=== PATIENT | male | born 1975 | race Caucasian/White ===

== ENCOUNTER 2016-11-29 10:28 | Emergency (ER) | payer BC, OTHER ==
[~2016-11-29] VITALS: Ht 185.4 cm; Wt 104.0 kg
[~2016-11-29 10:28] MED LIST: MECL25 PO; PROM25SU8 PO; Z.0.NO CURRENT MEDS
[2016-11-29 10:30] VITALS: BP 141/77; PULSE 86; RESP 20; TEMP 98.7; O2SAT 96
[2016-11-29] MEDS ORDERED: SODIUM CHLOR 0.9% 1000 ML INJ 1,000 ML IV SCH (11:04)
[2016-11-29] MEDS ORDERED: MORPHINE SULFATE 4 MG/ML INJ IV PUSH ONE (11:15)
[2016-11-29] MEDS ORDERED: SODIUM CHLORIDE 0.9% FLUSH 10 ML FLUSH IV FLUSH PRN (11:15)
[2016-11-29] MEDS ORDERED: ONDANSETRON HCL 4 MG/2 ML VIAL IVP ONE (11:15)
--- NOTE | 2016-11-29 11:18 | PD ---
HPI Chief Complaint: Flank/Kidney Pain Time Seen by Provider: 11:04 Travel History International Travel<30 days: No Contact w/Intl Traveler<30days: No Traveled to known affect area: No History of Present Illness HPI Patient is a 41-year-old male who presents to emergency room with complaints of right-sided flank pain. Patient reports that he has been having intermittent right-sided flank pain for the past week. Patient reports that he exercises heavily, reports that he thought that he initially pulled a muscle in his back. Patient reports that pain has been constant, reports that has been unrelenting at this time, patient reports that he does not have history of kidney stones in the past. Denies hematuria, denies urinary urgency/frequency. Reports that this pain is deep to his right flank. Patient also admits to taking a lot of muscle building protein shakes, reports that he has been taking extra creatine by accident as he did not realize that he was in his protein shakes. Patient with no fevers or chills, no nausea or vomiting, patient with no other complaints at this time. [facility] Past Medical History Medical History: Denies Significant Hx Diminished Hearing: No Tetanus Vaccination: Unknown Influenza Vaccination: No Past Surgical History Abdominal Surgery: Yes (HERNIA) Social History Alcohol Use: Yes (OCC) Tobacco Use: No Substance Use: No Allergies-Medications (Allergen,Severity, Reaction): Coded Allergies: No Known Allergies (Unverified , 11/29/16) Reported Meds & Prescriptions Reported Meds & Active Scripts Active No Active Prescriptions or Reported Medications Review of Systems General / Constitutional: No: Fever Eyes: No: Visual changes HENT: No: Headaches Cardiovascular: No: Chest Pain or Discomfort Respiratory: No: Shortness of Breath Gastrointestinal: No: Abdominal Pain Genitourinary: Positive: Flank Pain, No: Urgency, Frequency, Dysuria, Hematuria Musculoskeletal: No: Pain Skin: No Rash Neurologic: No: Weakness Psychiatric: No: Depression Endocrine: No: Polydipsia Hematologic/Lymphatic: No: Easy Bruising Physical Exam Narrative GENERAL: Mild distress SKIN: Focused skin assessment warm/dry. HEAD: Atraumatic. Normocephalic. EYES: Pupils equal and round. No scleral icterus. No injection or drainage. ENT: No nasal bleeding or discharge. Mucous membranes pink and moist. NECK: Trachea midline. No JVD. CARDIOVASCULAR: Regular rate and rhythm. No murmur appreciated. RESPIRATORY: No accessory muscle use. Clear to auscultation. Breath sounds equal bilaterally. GASTROINTESTINAL: Abdomen soft, non-tender, nondistended. Hepatic and splenic margins not palpable. MUSCULOSKELETAL: No obvious deformities. No clubbing. No cyanosis. No edema. Patient with left sided flank pain on exam NEUROLOGICAL: Awake and alert. No obvious cranial nerve deficits. Motor grossly within normal limits. Normal speech. PSYCHIATRIC: Appropriate mood and affect; insight and judgment normal. Data Data Last Documented VS Vital Signs Date Time Temp Pulse Resp B/P (MAP) Pulse Ox O2 Delivery O2 Flow Rate FiO2 11/29/16 10:56 16 11/29/16 10:30 98.7 86 141/77 (98) 96 Room Air Orders Orders Complete Blood Count With Diff (11/29/16 11:04) Comprehensive Metabolic Panel (11/29/16 11:04) Prothrombin Time / Inr (Pt) (11/29/16 11:04) Act Partial Throm Time (Ptt) (11/29/16 11:04) Urinalysis - C+S If Indicated (11/29/16 11:04) Ct Abd/Pel W/O Iv Contrast (11/29/16 11:04) Iv Access Insert/Monitor (11/29/16 11:04) Ecg Monitoring (11/29/16 11:04) NPO (11/29/16 11:04) Morphine Inj (Morphine Inj) (11/29/16 11:15) Ondansetron Inj (Zofran Inj) (11/29/16 11:15) Sodium Chlor 0.9% 1000 Ml Inj (Ns 1000 M (11/29/16 11:04) Sodium Chloride 0.9% Flush (Ns Flush) (11/29/16 11:15) Labs Laboratory Tests Test 11/29/16 11:00 White Blood Count 6.2 TH/MM3 Red Blood Count 4.91 MIL/MM3 Hemoglobin 13.7 GM/DL Hematocrit 41.1 % Mean Corpuscular Volume 83.7 FL Mean Corpuscular Hemoglobin 27.8 PG Mean Corpuscular Hemoglobin Concent 33.3 % Red Cell Distribution Width 14.3 % Platelet Count 198 TH/MM3 Mean Platelet Volume 9.8 FL Neutrophils (%) (Auto) 63.5 % Lymphocytes (%) (Auto) 25.8 % Monocytes (%) (Auto) 7.1 % Eosinophils (%) (Auto) 2.8 % Basophils (%) (Auto) 0.8 % Neutrophils # (Auto) 4.0 TH/MM3 Lymphocytes # (Auto) 1.6 TH/MM3 Monocytes # (Auto) 0.4 TH/MM3 Eosinophils # (Auto) 0.2 TH/MM3 Basophils # (Auto) 0.0 TH/MM3 CBC Comment DIFF FINAL Differential Comment Prothrombin Time 11.0 SEC Prothromb Time International Ratio 1.0 RATIO Activated Partial Thromboplast Time 25.9 SEC Urine Color YELLOW Urine Turbidity CLEAR Urine pH 5.0 Urine Specific Loring 1.025 Urine Protein NEG mg/dL Urine Glucose (UA) NEG mg/dL Urine Ketones NEG mg/dL Urine Occult Blood TRACE Urine Nitrite NEG Urine Bilirubin NEG Urine Urobilinogen LESS THAN 2.0 MG/DL Urine Leukocyte Esterase NEG Urine RBC LESS THAN 1 /hpf Urine WBC 1 /hpf Urine Squamous Epithelial Cells <1 /hpf Urine Bacteria RARE /hpf Urine Hyaline Casts 1 /lpf Urine Mucus FEW /lpf Microscopic Urinalysis Comment CULT NOT INDICATED Blood Urea Nitrogen 16 MG/DL Creatinine 1.11 MG/DL Random Glucose 104 MG/DL Total Protein 7.5 GM/DL Albumin 4.2 GM/DL Calcium Level 8.8 MG/DL Alkaline Phosphatase 51 U/L Aspartate Amino Transf (AST/SGOT) 12 U/L Alanine Aminotransferase (ALT/SGPT) 23 U/L Total Bilirubin 0.4 MG/DL Sodium Level 140 MEQ/L Potassium Level 3.7 MEQ/L Chloride Level 111 MEQ/L Carbon Dioxide Level 24.5 MEQ/L Anion Gap 5 MEQ/L Estimat Glomerular Filtration Rate 73 ML/MIN [facility] Medical Decision Making Medical Screen Exam Complete: Yes Emergency Medical Condition: Yes Medical Record Reviewed: Yes Interpretation(s) Vital Signs Date Time Temp Pulse Resp B/P (MAP) Pulse Ox O2 Delivery O2 Flow Rate FiO2 11/29/16 10:56 16 11/29/16 10:30 98.7 86 20 141/77 (98) 96 Room Air Differential Diagnosis Differential includes pyelonephritis, musculoskeletal flank pain, uti, renal failure Narrative Course Patient is a 41-year-old male who presents to emergency room with complaints of left sided flank pain. Onset was for the past week. An IV line was established, lab work including UA ordered. CT of his abdomen and pelvis. IVF ordered. Patient refuses any pain medications at this time. Vital Signs Date Time Temp Pulse Resp B/P (MAP) Pulse Ox O2 Delivery O2 Flow Rate FiO2 11/29/16 10:56 16 11/29/16 10:30 98.7 86 20 141/77 (98) 96 Room Air Laboratory Tests Test 11/29/16 11:00 White Blood Count 6.2 TH/MM3 (4.0-11.0) Red Blood Count 4.91 MIL/MM3 (4.50-5.90) Hemoglobin 13.7 GM/DL (13.0-17.0) Hematocrit 41.1 % (39.0-51.0) Mean Corpuscular Volume 83.7 FL (80.0-100.0) Mean Corpuscular Hemoglobin 27.8 PG (27.0-34.0) Mean Corpuscular Hemoglobin Concent 33.3 % (32.0-36.0) Red Cell Distribution Width 14.3 % (11.6-17.2) Platelet Count 198 TH/MM3 (150-450) Mean Platelet Volume 9.8 FL (7.0-11.0) Neutrophils (%) (Auto) 63.5 % (16.0-70.0) Lymphocytes (%) (Auto) 25.8 % (9.0-44.0) Monocytes (%) (Auto) 7.1 % (0.0-8.0) Eosinophils (%) (Auto) 2.8 % (0.0-4.0) Basophils (%) (Auto) 0.8 % (0.0-2.0) Neutrophils # (Auto) 4.0 TH/MM3 (1.8-7.7) Lymphocytes # (Auto) 1.6 TH/MM3 (1.0-4.8) Monocytes # (Auto) 0.4 TH/MM3 (0-0.9) Eosinophils # (Auto) 0.2 TH/MM3 (0-0.4) Basophils # (Auto) 0.0 TH/MM3 (0-0.2) CBC Comment DIFF FINAL Differential Comment Prothrombin Time 11.0 SEC (9.8-11.6) Prothromb Time International Ratio 1.0 RATIO Activated Partial Thromboplast Time 25.9 SEC (24.3-30.1) Urine Color YELLOW (YELLW/STRAW) Urine Turbidity CLEAR (CLEAR) Urine pH 5.0 (5.0-8.5) Urine Specific Loring 1.025 (1.002-1.035) Urine Protein NEG mg/dL (NEG-TRACE) Urine Glucose (UA) NEG mg/dL (NEG) Urine Ketones NEG mg/dL (NEG) Urine Occult Blood TRACE (NEG) Urine Nitrite NEG (NEG) Urine Bilirubin NEG (NEG) Urine Urobilinogen LESS THAN 2.0 MG/DL (LESS Urine Leukocyte Esterase NEG (NEG) Urine RBC LESS THAN 1 /hpf (0-3) Urine WBC 1 /hpf (0-5) Urine Squamous Epithelial Cells <1 /hpf (0-5) Urine Bacteria RARE /hpf (NONE) Urine Hyaline Casts 1 /lpf (RARE) Urine Mucus FEW /lpf (OCC) Microscopic Urinalysis Comment CULT NOT INDICATED Blood Urea Nitrogen 16 MG/DL (7-18) Creatinine 1.11 MG/DL (0.60-1.30) Random Glucose 104 MG/DL (74-106) Total Protein 7.5 GM/DL (6.4-8.2) Albumin 4.2 GM/DL (3.4-5.0) Calcium Level 8.8 MG/DL (8.5-10.1) Alkaline Phosphatase 51 U/L (45-117) Aspartate Amino Transf (AST/SGOT) 12 U/L (15-37) Alanine Aminotransferase (ALT/SGPT) 23 U/L (12-78) Total Bilirubin 0.4 MG/DL (0.2-1.0) Sodium Level 140 MEQ/L (136-145) Potassium Level 3.7 MEQ/L (3.5-5.1) Chloride Level 111 MEQ/L (98-107) Carbon Dioxide Level 24.5 MEQ/L (21.0-32.0) Anion Gap 5 MEQ/L (5-15) Estimat Glomerular Filtration Rate 73 ML/MIN (>89) Last Impressions Abdomen/Pelvis CT 11/29/16 1104 Signed Impressions: Service Date/Time: Tuesday, November 29, 2016 11:44 - CONCLUSION: 1. No acute abnormality seen. 2. 2 left renal masses. These are nonspecific on this noncontrast CT examination. They could be further evaluated with a contrast-enhanced study at some point. This could be performed as an outpatient. Bo Alexandra MD I reviewed all labs and all studies as well as all incidental findings with patient in detail. A copy of his CT report was given to him at discharge. Patient understands concerning findings of renal masses in left kidney. Patient understand's need to follow up with his pcp and sales associate as soon as possible as he will need further workup on these findings. He did initially presented to the emergency room with complaints of right-sided flank pain, this is most likely musculoskeletal in nature. Signs and symptoms of when to return to the emergency room reviewed patient in detail. Diagnosis Primary Impression: Left kidney mass Additional Impression: Right flank pain Referrals: Elise Kulkarni MD Patient Instructions: General Instructions Additional Instructions: Please provide patient with a copy of his labs and studies at discharge Please follow-up with your primary care doctor as soon as possible Please follow-up with sales associate as soon as possible as you will need further workup of the kidney masses seen on today study Please bring the copy of your labs and studies with you to your appointments Return to ER as needed Scripts No Active Prescriptions or Reported Meds Disposition: 01 DISCHARGE HOME Condition: Stable Gay Hewitt DO Nov 29, 2016 11:18
[2016-11-29 11:20] LABS: BASOPHIL % 0.8 % (0.0-2.0); EOSINOPHIL # 0.2 TH/MM3 (0-0.4); EOSINOPHIL % 2.8 % (0.0-4.0); HEMATOCRIT 41.1 % (39.0-51.0); HEMO FLAGS DIFF FINAL; LYMPH % 25.8 % (9.0-44.0); LYMPHOCYTE # 1.6 TH/MM3 (1.0-4.8); MEAN CELL VOLUME 83.7 FL (80.0-100.0); MEAN CORPUSCULAR HEMOGLOBIN 27.8 PG (27.0-34.0); MEAN CORPUSCULAR HGB CONC 33.3 % (32.0-36.0); MONO % 7.1 % (0.0-8.0); NEUT % 63.5 % (16.0-70.0); PLATELET COUNT 198 TH/MM3 (150-450); RED BLOOD COUNT 4.91 MIL/MM3 (4.50-5.90); RED CELL DISTRIBUTION WIDTH 14.3 % (11.6-17.2); WHITE BLOOD COUNT 6.2 TH/MM3 (4.0-11.0)
[2016-11-29 11:24] LABS: BACTERIA, URINE RARE /hpf; BLOOD, URINE TRACE (NEG); COMMENT (UR) CULT NOT INDICATED; CULTURE IF INDICATED CULT NOT INDICATED; GLUCOSE,URINE NEG (NEG); HYALINE CAST, URINE 1 /lpf (RARE); KETONE, URINE NEG (NEG); MUCUS URINE FEW /lpf (OCC); NITRITE,URINE NEG (NEG); SQUAMOUS EPITHELIAL CELL URINE <1 /hpf (0-5); URINE COLOR YELLOW (YELLW/STRAW)
[2016-11-29 11:26] LABS: APTT (PATIENT) 25.9 SEC (24.3-30.1)
[2016-11-29 11:42] LABS: ALT (GPT) 23 U/L (12-78); ANION GAP 5 MEQ/L (5-15); AST (GOT) 12 U/L (15-37); BICARBONATE 24.5 MEQ/L (21.0-32.0); BLOOD UREA NITROGEN 16 MG/DL (7-18); CHLORIDE 111 MEQ/L (98-107); GLOMERULAR FILTRATION RATE 73 ML/MIN (>89); POTASSIUM 3.7 MEQ/L (3.5-5.1); SODIUM (NA) 140 MEQ/L (136-145)
[2016-11-29 11:44] LABS: ALKALINE PHOSPHATASE 51 U/L (45-117); TOTAL BILIRUBIN ADULT 0.4 MG/DL (0.2-1.0)
--- NOTE | 2016-11-29 12:07 | RADRPT ---
EXAM DATE/TIME: 11/29/2016 11:44 [place] COMPARISON: No previous studies available for comparison. INDICATIONS : Flank pain. ORAL CONTRAST: No oral contrast ingested. RADIATION DOSE: 8.51 CTDIvol (mGy) MEDICAL HISTORY : None SURGICAL HISTORY : Hernia ENCOUNTER: Initial ACUITY: 2 weeks PAIN SCALE: 8/10 LOCATION: Right flank TECHNIQUE: Volumetric scanning of the abdomen and pelvis was performed. Using automated exposure control and ad justment of the mA and/or kV according to patient size, radiation dose was kept as low as reasonably achievable to obtain optimal diagnostic quality images. DICOM format image data is available electro nically for review and comparison. FINDINGS: LOWER LUNGS: The visualized lower lungs are clear. LIVER: Homogeneous density without lesion. There is no dilation of the biliary tree. No calcified gallston es. SPLEEN: Normal size without lesion. PANCREAS: Within normal limits. KIDNEYS: There is a 3 cm mass in the posterior mid left kidney and a 6.1 cm mass at the inferior left kidney. No renal stones or hydronephrosis is seen on either side. ADRENAL GLANDS: Within normal limits. VASCULAR: There is no aortic aneurysm. BOWEL/MESENTERY: The stomach, small bowel, and colon demonstrate no acute abnormality. There is no free intraperitone al air or fluid. ABDOMINAL WALL: Within normal limits. RETROPERITONEUM: There is no lymphadenopathy. BLADDER: No wall thickening or mass. REPRODUCTIVE: Within normal limits. INGUINAL: There is no lymphadenopathy or hernia. MUSCULOSKELETAL: Within normal limits for patient age. CONCLUSION: 1. No acute abnormality seen. 2. 2 left renal masses. These are nonspecific on this noncontrast CT examination. They could be furth er evaluated with a contrast-enhanced study at some point. This could be performed as an outpatient. Bo Alexandra MD on November 29, 2016 at 12:02 Board Certified Radiologist. This report was verified electronically.
[2016-12-09] MEDS ORDERED: ETOD500T2 PO (14:27)
== END 2016-11-29 13:18 | disposition home or self-care (01) ==
LOC: NEPC 10:28
DX: N28.89 Other specified disorders of kidney and ureter (principal); R10.31 Right lower quadrant pain
CPT/HCPCS: 74176; 80053; 81001; 85025; 85610; 85730; 96360; 99284; J7030

== ENCOUNTER 2016-12-22 11:26 | Inpatient (IN) | payer BC ==
[~2016-12-22] VITALS: Ht 185.4 cm; Wt 101.9 kg
[~2016-12-22 11:26] MED LIST changes: +ETOD500T2 PO; -MECL25 PO; -PROM25SU8 PO; -Z.0.NO CURRENT MEDS
[2016-12-22] MEDS ORDERED: PROPOFOL 200 MG/20 ML AMP IV ONE (12:00)
[2016-12-22] MEDS ORDERED: ceFAZolin INJ 1,000 MG VIAL IV ONE (12:00)
[2016-12-22] MEDS ORDERED: ePHEDrine/NS 25 MG/5 ML SYR IV ONE (12:00)
[2016-12-22] MEDS ORDERED: LIDOCAINE HCL 1% PF 5 ML SYRINGE OTHER ONE (12:00)
[2016-12-22] MEDS ORDERED: PHENYLEPHRINE HCL 10 MG/ML VIAL IV ONE (12:00)
[2016-12-22] MEDS ORDERED: ROCURONIUM INJ 50 MG/5 ML SYRINGE IV PUSH ONE (12:00)
[2016-12-22] MEDS ORDERED: MIDAZOLAM HCL 2 MG/2 ML VIAL IV ONE (12:00)
[2016-12-22] MEDS ORDERED: ESMOLOL HCL 100 MG/10 ML VIAL IV ONE (12:00)
[2016-12-22] MEDS ORDERED: PHENYLEPH/NS 1000 MCG/10 ML SYR IV ONE (12:00)
[2016-12-22] MEDS ORDERED: NORMOSOL R INJ 1,000 ML IV ONE (12:00)
[2016-12-22] MEDS ORDERED: ONDANSETRON HCL 4 MG/2 ML VIAL IV PUSH ONE (12:00)
[2016-12-22] MEDS ORDERED: SODIUM CHLORIDE 0.9% 20 ML VIAL IV ONE (12:00)
[2016-12-22] MEDS ORDERED: VECURONIUM BROMIDE 20 MG VIAL IV ONE (12:00)
[2016-12-22] MEDS ORDERED: SODIUM CHLORID 0.9% 500 ML INJ 500 ML IV ONE (12:00)
[2016-12-22] MEDS ORDERED: ceFAZolin 2 GM PREMIX 50 ML IV SCH (12:15)
[2016-12-22] MEDS ORDERED: CHLORHEXIDINE GLUCONATE 2 % 1 PACK (2 CLOTHS) TOPICAL PRN (12:15)
[2016-12-22] MEDS ORDERED: INSULIN HUMAN REGULAR 1,000 UNITS/10 ML VIAL SQ PRN (12:15)
[2016-12-22] MEDS ORDERED: SODIUM CHLORID 0.9% 500 ML IV PRN (12:15)
[2016-12-22] MEDS ORDERED: METOPROLOL TARTRATE 25 MG TAB PO PRN (12:15)
[2016-12-22] MEDS ORDERED: POVIDONE IODINE 5% (ANTISEPSIS KIT) 4 APPLICATIONS EACH NARE PRN (12:15)
[2016-12-22] MEDS ORDERED: LACTATED RINGER'S 1000 ML IV PRN (12:15)
[2016-12-22] MEDS ORDERED: ACETAMINOPHEN 1000 MG/100 ML 100 ML IV ONE (12:58)
[2016-12-22] MEDS ORDERED: SUGAMMADEX SODIUM 200 MG/2 ML VIAL IV PUSH ONE ×2 (12:59)
[2016-12-22] MEDS ORDERED: HYDROmorphone HCL PF 2 MG/ML VIAL ONE (12:59)
--- NOTE | 2016-12-22 13:55 | EKG ---
Date Performed: 12/22/2016 Time Performed: 12:03:00 PTAGE: 41 years EKG: Sinus rhythm NORMAL ECG PREVIOUS TRACING : 04/17/2011 21.27 Compared to prior tracing no significant change DOCTOR: German Marshall Interpretating Date/Time 12/22/2016 13:55:05
[2016-12-22] MEDS ORDERED: VECURONIUM BROMIDE 20 MG VIAL ONE ×2 (17:16→17:21)
[2016-12-22 18:04] LABS: BLOOD GAS BASE EXCESS -1.2 mmol/L (-2-2); BLOOD GAS CARBOXYHEMOGLOBIN 0.9 % (0-4); BLOOD GAS HCO3 23 mmol/L (22-26); BLOOD GAS METHEMOGLOBIN 1.4 % (0-2); BLOOD GAS O2 HGB SATURATION 97 % (90-100); BLOOD GAS PCO2 40 mmHg (38-42); BLOOD GAS PO2 174 mmHg (61-120); BLOOD GAS TOTAL HGB 12.3 G/DL (12.0-16.0); CRITICAL VALUE NO; OXYGEN DEVICE OR; TEMP CORR TO 98.6; VENT SETTINGS OR
[2016-12-22 18:05] LABS: STAT YES
[2016-12-22 18:14] LABS: HEMATOCRIT 36.4 % (39.0-51.0); REVIEW FLAG FINAL
[2016-12-22 18:29] LABS: BLOOD GAS BASE EXCESS -2.1 mmol/L (-2-2); BLOOD GAS CARBOXYHEMOGLOBIN 0.8 % (0-4); BLOOD GAS HCO3 23 mmol/L (22-26); BLOOD GAS METHEMOGLOBIN 1.3 % (0-2); BLOOD GAS O2 HGB SATURATION 97 % (90-100); BLOOD GAS OXYGEN CONTENT 16.1 Vol % (12.0-20.0); BLOOD GAS PCO2 42 mmHg (38-42); BLOOD GAS PO2 200 mmHg (61-120); BLOOD GAS TOTAL HGB 11.5 G/DL (12.0-16.0); TEMP CORR TO 98.6
[2016-12-22 18:30] LABS: CRITICAL VALUE NO; OXYGEN DEVICE OR; STAT YES
[2016-12-22] MEDS ORDERED: DO NOT ADM ANY ANTICOAGULANT DRUGS PRN (19:28)
--- NOTE | 2016-12-22 19:32 | PD.OP ---
Operative Report Date of Surgery: Dec 22, 2016 Preoperative Diagnosis: (1) Renal mass, left Postoperative Diagnosis: (1) Renal mass, left Procedure: Robot-assisted laparoscopic left radical nephrectomy converted to open surgical procedure Surgeon: Travis Santiago Staff Nuclear Medicine Technologist(s): Malcolm Vázquez Operation and Findings: Indication for procedure: Case of a pleasant 41-year-old gentleman who was incidentally discovered to have a 3 cm mass involving the mid posterior left kidney suspicious for malignancy. Patient presents now for surgical removal with a robot-assisted laparoscopic left radical nephrectomy. Operative procedure in detail: Patient was brought to the operating suite and placed supine on the OR table. He was then placed under general anesthesia. He was then placed in the right lateral recumbent position and held in place with a beanbag. The table was flexed to create more space between the thorax and pelvis. All pressure points were adequately padded. He was next prepped and draped in normal sterile fashion. After appropriate timeout was undertaken I proceeded with creating a pneumoperitoneum utilizing the Veress needle in standard fashion. Subsequent to this the camera port was placed with the visual obturator followed by 3 robotic arm ports under direct vision and the assistant drafter port under direct vision as well. The robot was next docked in standard fashion. I repositioned myself over at the [place] console and Dr. Malcolm Vázquez remained at the bedside to pharmacy affairs assistant. I then proceeded with mobilizing the left colon. The splenic flexure was socked in with multiple adhesive bands and a tic considerable time to free the colon from its attachments. Once this was accomplished and the retro-peritoneum was exposed, I then proceeded inferiorly to free up the inferior pole of the kidney and then carefully created a plane between the kidney and psoas muscle working in a cephalad direction. The hilar vessels were next identified and the patient was noted to have a very large left renal vein that branched out into multiple segments. Also noted were multiple arterial branches feeding the kidney. Care was taken to mobilize these vessels and divide them with the endovascular stapling device. This was a tedious process and I proceeded slowly and methodically. Upon further mobilization of the upper pole I subsequent countered significant venous bleeding from the upper posterior kidney and multiple attempts were made to control this bleeding without success. Blood loss prior to this event was minimal and once son lost approximately 2 L of blood, and a decision to convert the case to an open surgical procedure. The robot was undocked and I created a midline incision starting from the assistant drafter port working cephalad to and above the camera port site. Incision was made with a #10 blade and extended down to address the underlying fascia. I then proceeded to control bleeding by grabbing the posterior hilar region and compressing the tissue. The endovascular stapling device was utilized multiple times and bleeding was controlled and the specimen subsequently delivered via the wound. The tumor mass was noted to be proximal 3 cm involving the posterior aspect of the kidney S seen on preoperative imaging studies and on gross inspection was consistent with a renal cell carcinoma. Careful inspection was next made of the left renal bed and no active bleeding was noted. Surgicel snow was utilized as a precautionary measure and a 10 mm PAULINE drain placed and brought out via one of the robotic arm port sites. I then proceeded to close the midline incision with a #1 PDS suture followed by reapproximating the skin edges with the skin stapling device. The remaining 2 robotic arm port sites were then closed by reapproximating the skin with the surgical stapling device as well. Sterile dressings were placed at all wound sites. The patient tolerated the procedure well and was transferred to the post procedure care unit in satisfactory condition. Travis Santiago MD Dec 22, 2016 19:32
[2016-12-22] MEDS ORDERED: Post-op Orders (for Pharmacy) MISC XX ONE (19:45)
[2016-12-22] MEDS ORDERED: SODIUM CHLORIDE 0.9% FLUSH 10 ML FLUSH IV FLUSH PRN (19:45)
[2016-12-22] MEDS ORDERED: NALOXONE HCL 0.4 MG/ML AMP IV PUSH PRN (19:45)
[2016-12-22] MEDS ORDERED: ONDANSETRON HCL 4 MG/2 ML VIAL IV PUSH PRN (19:45)
[2016-12-22] MEDS: LACTATED RINGER'S 1000 ML INJ 1,000 ML IV SCH (20:00)
[2016-12-22] MEDS: HYDROmorphone HCL PCA 6 MG/30 ML IV SCH (20:45)
[2016-12-22 20:57] LABS: HEMATOCRIT 35.6 % (39.0-51.0)
[2016-12-22] MEDS: SODIUM CHLORIDE 0.9% FLUSH 10 ML FLUSH IV FLUSH SCH (21:00)
[2016-12-22 21:05] LABS: REVIEW FLAG FINAL
[2016-12-22 21:45] VITALS: BP 116/59; PULSE 92; RESP 18; TEMP 98.4; O2SAT 95
[2016-12-22 21:48] VITALS: O2SAT 98
[2016-12-22 22:00] VITALS: PULSE 94
[2016-12-22] MEDS: PCA - TOTAL MG DILAUDID DELIVERED PER SHIFT OTHER SCH (22:00)
[2016-12-23] VITALS (11 sets, daily range): BP systolic 98–132; BP diastolic 56–79; PULSE 77–96; RESP 13–20; TEMP 97.7–98.5; O2SAT 95–100
[2016-12-23] MEDS: HYDROmorphone HCL PCA 6 MG/30 ML IV SCH (05:15)
[2016-12-23] MEDS: LACTATED RINGER'S 1000 ML INJ 1,000 ML IV SCH ×3 (05:20→19:32)
[2016-12-23] MEDS: PCA - TOTAL MG DILAUDID DELIVERED PER SHIFT OTHER SCH (06:00)
[2016-12-23] MEDS: SODIUM CHLORIDE 0.9% FLUSH 10 ML FLUSH IV FLUSH SCH ×2 (09:00→21:46)
--- NOTE | 2016-12-23 10:00 | HHI.PR ---
Subjective Patient symptoms today Postoperative day #1 Complains of mild to moderate incisional pain when moving Feels hungry Denies bowel movement Would like to get out of bed Objective Vital Signs Vital Signs Date Time Temp Pulse Resp B/P (MAP) Pulse Ox O2 Delivery O2 Flow Rate FiO2 12/23/16 09:11 98 Nasal Cannula 2.00 12/23/16 08:00 82 12/23/16 08:00 97.8 77 14 104/72 (83) 100 12/23/16 07:00 100 Nasal Cannula 2.00 12/23/16 06:00 19 12/23/16 06:00 80 12/23/16 05:15 12 12/23/16 04:00 78 12/23/16 04:00 97.7 78 13 106/62 (77) 100 12/23/16 02:00 80 12/23/16 00:00 98.3 84 19 98/56 (70) 99 104/58 (73) 12/23/16 00:00 84 12/22/16 22:00 94 12/22/16 21:48 98 Nasal Cannula 2.00 12/22/16 21:45 98.4 92 18 116/59 (78) 95 12/22/16 21:45 95 Nasal Cannula 2.00 12/22/16 21:45 98.4 92 18 116/59 (78) 95 12/22/16 21:45 92 12/22/16 21:30 97.8 93 13 116/55 (75) 98 Nasal Cannula 2 12/22/16 21:15 96 14 119/56 (77) 99 Nasal Cannula 2 114/58 (76) 12/22/16 21:00 94 16 107/55 (72) 98 Nasal Cannula 2 116/53 (74) 12/22/16 20:45 95 18 119/55 (76) 100 Nasal Cannula 4 112/57 (75) 12/22/16 20:30 92 19 113/57 (75) 98 Nasal Cannula 4 117/54 (75) 12/22/16 20:15 96 18 117/60 (79) 100 Nasal Cannula 4 117/54 (75) 12/22/16 20:00 98 16 114/63 (80) 98 Nasal Cannula 4 117/58 (77) 12/22/16 19:45 104 19 115/57 (76) 97 Nasal Cannula 4 119/57 (77) 12/22/16 19:30 109 18 114/62 (79) 99 Nasal Cannula 4 12/22/16 19:27 98.8 107 6 119/63 (81) 99 Simple Mask 10 12/22/16 11:57 99.0 67 20 115/68 (84) 97 Intake & Output 12/23/16 12/23/16 07:00 19:00 Intake Total 1397 ml Output Total 920 ml Balance 477 ml Intake Oral 0 ml IV Total 1397 ml Output Urine Total 850 ml Drainage Total 70 ml # Bowel Movements 0 Result Diagram: 12/22/162033 Objective Remarks Lungs clear Heart regular rate and rhythm Abdomen soft, nondistended, mild tenderness to palpation PAULINE drain in place with minimal output Latham draining clear yellow urine Extremities well-perfused, nontender Medications and IVs Current Medications Medications (Trade) Dose Ordered Sig/Alexandrea Route Start Time Stop Time Status Last Admin Lactated Ringer's 1,000 ml @ 30 mls/hr Q24H PRN IV 12/22/16 12:15 12/25/16 12:14 12/22/16 11:30 Sodium Chloride 500 ml @ 30 mls/hr [id number] PRN IV 12/22/16 12:15 12/25/16 12:14 (Lopressor) 25 mg COLLEGE COACH PRN PO 12/22/16 12:15 12/25/16 12:14 (Betadine 5% Antisepsis Kit) 1 applic COLLEGE COACH PRN EACH NARE 12/22/16 12:15 12/25/16 12:14 12/22/16 12:00 (Chlorhexidine 2% Cloth) 3 pack COLLEGE COACH PRN TOPICAL 12/22/16 12:15 12/25/16 12:14 12/22/16 11:30 (NovoLIN R INJ) See Protocol Table ... COLLEGE COACH PRN SQ 12/22/16 12:15 12/25/16 12:14 Cefazolin Sodium/ Dextrose 50 ml @ 100 mls/hr COLLEGE COACH IV 12/22/16 12:15 12/25/16 12:14 12/22/16 13:40 Lactated Ringer's 1,000 ml @ 125 mls/hr Q8H IV 12/22/16 19:32 12/23/16 05:20 (NS Flush) 2 ml UNSCH PRN IV FLUSH 12/22/16 19:45 (NS Flush) 2 ml BID IV FLUSH 12/22/16 21:00 12/23/16 09:00 (Zofran Inj) 4 mg Q6H PRN IV PUSH 12/22/16 19:45 Cefazolin Sodium 1000 mg/Sodium Chloride 100 ml @ 200 mls/hr Q8H IV 12/22/16 22:00 12/23/16 14:29 12/23/16 05:20 (Narcan Inj) 0.4 mg UNSCH PRN IV PUSH 12/22/16 19:45 (Dilaudid CAISSON WORKER Inj) 6 mg UNSCH IV 12/22/16 19:45 12/23/16 05:15 CAISSON WORKER Dosage Infused (Pha) 1 Q8HR OTHER 12/22/16 22:00 12/23/16 06:00 Miscellaneous Information ALL NURSING DEPARTME... UNSCH PRN .XX 12/22/16 19:28 12/23/16 19:27 Assessment and Plan Assessment and Plan Urologic impression: #1 status post robot-assisted laparoscopic left radical nephrectomy converted to open procedure #2 hemodynamically stable Plan: #1 advance diet as tolerated #2 out of bed #3 DC Latham #4 DC PAULINE drain #5 DC arterial line #6 DC CAISSON WORKER #7 transfer to surgical floor #8 check repeat labs #9 check path when available #10 DC surgical dave on January 04 Travis Santiago MD Dec 23, 2016 10:00
[2016-12-23] MEDS ORDERED: oxyCODONE/ACETAMINOPHEN 5 MG/325 MG TAB PO PRN (10:15)
[2016-12-23] MEDS: oxyCODONE/ACETAMINOPHEN 5 MG/325 MG TAB PO PRN ×3 (11:53→23:39)
[2016-12-23 13:28] LABS: HEMATOCRIT 30.9 % (39.0-51.0); MEAN CELL VOLUME 80.7 FL (80.0-100.0); MEAN CORPUSCULAR HEMOGLOBIN 27.3 PG (27.0-34.0); MEAN CORPUSCULAR HGB CONC 33.8 % (32.0-36.0); PLATELET COUNT 147 TH/MM3 (150-450); RED BLOOD COUNT 3.83 MIL/MM3 (4.50-5.90); WHITE BLOOD COUNT 8.4 TH/MM3 (4.0-11.0)
[2016-12-23] MEDS: DOCUSATE SODIUM 100 MG CAP PO SCH ×2 (13:32→19:01)
[2016-12-23 13:37] LABS: REVIEW FLAG FINAL
[2016-12-23 13:59] LABS: BICARBONATE 27.2 MEQ/L (21.0-32.0); POTASSIUM 3.8 MEQ/L (3.5-5.1)
[2016-12-24 00:43] VITALS: BP 128/75; PULSE 78; RESP 18; TEMP 98; O2SAT 98
[2016-12-24] MEDS: LACTATED RINGER'S 1000 ML INJ 1,000 ML IV SCH ×4 (03:32→21:52)
[2016-12-24] MEDS: HYDROmorphone HCL PF 2 MG/ML VIAL IV PRN ×3 (05:08→20:42)
[2016-12-24 08:00] VITALS: BP 142/77; PULSE 85; RESP 17; TEMP 97.9; O2SAT 96
[2016-12-24] MEDS: oxyCODONE/ACETAMINOPHEN 5 MG/325 MG TAB PO PRN ×3 (08:29→22:36)
[2016-12-24] MEDS: SODIUM CHLORIDE 0.9% FLUSH 10 ML FLUSH IV FLUSH SCH ×2 (08:32→20:47)
[2016-12-24] MEDS: DOCUSATE SODIUM 100 MG CAP PO SCH ×4 (08:32→20:48)
--- NOTE | 2016-12-24 08:43 | HHI.PR ---
Subjective Patient symptoms today Pt seen and examined. c/o pain; no flatus as yet. Tolerated some diet. Objective Vital Signs Vital Signs Date Time Temp Pulse Resp B/P (MAP) Pulse Ox O2 Delivery O2 Flow Rate FiO2 12/24/16 08:00 97.9 85 17 142/77 (98) 96 12/24/16 05:38 20 12/24/16 00:43 98.0 78 18 128/75 (92) 98 12/24/16 00:43 Room Air 12/24/16 00:39 20 12/23/16 21:02 98.2 80 18 132/79 (96) 98 12/23/16 21:02 Room Air 12/23/16 16:30 98.5 93 18 125/76 (92) 96 12/23/16 14:00 82 12/23/16 12:00 82 12/23/16 12:00 98.2 96 20 118/71 (87) 95 12/23/16 11:43 18 12/23/16 10:00 83 12/23/16 09:11 98 Nasal Cannula 2.00 Intake & Output 12/24/16 12/24/16 07:00 19:00 Intake Total 720 ml Balance 720 ml Intake Oral 720 ml # Voids 2 Result Diagram: 12/23/16 1258 12/23/16 1258 Objective Remarks Lungs clear Heart regular rate and rhythm Abdomen soft, nondistended, mild tenderness to palpation PAULINE drain in place with minimal output Latham draining clear yellow urine Extremities well-perfused, nontender 12/24 Abd:soft,nd, incisional tenderness Dressing intact Ext: neg C/C/E Medications and IVs Current Medications Medications (Trade) Dose Ordered Sig/Alexandrea Route Start Time Stop Time Status Last Admin Lactated Ringer's 1,000 ml @ 30 mls/hr Q24H PRN IV 12/22/16 12:15 12/25/16 12:14 12/22/16 11:30 Sodium Chloride 500 ml @ 30 mls/hr [id number] PRN IV 12/22/16 12:15 12/25/16 12:14 (Lopressor) 25 mg NUCLEAR PHYSICS PROFESSOR PRN PO 12/22/16 12:15 12/25/16 12:14 (Betadine 5% Antisepsis Kit) 1 applic NUCLEAR PHYSICS PROFESSOR PRN EACH NARE 12/22/16 12:15 12/25/16 12:14 12/22/16 12:00 (Chlorhexidine 2% Cloth) 3 pack NUCLEAR PHYSICS PROFESSOR PRN TOPICAL 12/22/16 12:15 12/25/16 12:14 12/22/16 11:30 (NovoLIN R INJ) See Protocol Table ... NUCLEAR PHYSICS PROFESSOR PRN SQ 12/22/16 12:15 12/25/16 12:14 Cefazolin Sodium/ Dextrose 50 ml @ 100 mls/hr NUCLEAR PHYSICS PROFESSOR IV 12/22/16 12:15 12/25/16 12:14 12/22/16 13:40 Lactated Ringer's 1,000 ml @ 125 mls/hr Q8H IV 12/22/16 19:32 12/23/16 05:20 (NS Flush) 2 ml UNSCH PRN IV FLUSH 12/22/16 19:45 (NS Flush) 2 ml BID IV FLUSH 12/22/16 21:00 12/24/16 08:32 (Zofran Inj) 4 mg Q6H PRN IV PUSH 12/22/16 19:45 (Percocet 5-325 Mg) 1 tab Q6H PRN PO 12/23/16 10:15 12/23/16 10:48 (Percocet 5-325 Mg) 2 tab Q6H PRN PO 12/23/16 10:15 12/24/16 08:29 (Colace) 100 mg TID PO 12/23/16 13:00 12/24/16 08:32 (Dilaudid Pf Inj) 2 mg Q4H PRN IV 12/23/16 17:00 12/24/16 05:08 Assessment and Plan Assessment and Plan Urologic impression: #1 status post robot-assisted laparoscopic left radical nephrectomy converted to open procedure #2 hemodynamically stable Plan: #1 advance diet as tolerated #2 out of bed #3 DC Latham #4 DC PAULINE drain #5 DC arterial line #6 DC FOUNDER / CEO #7 transfer to surgical floor #8 check repeat labs #9 check path when available #10 DC surgical dave on January 0412/24 Stable s/p left radical Nx Continue OOB/Ambulation Pain control Drains out. Malcolm Vázquez DO Dec 24, 2016 08:43
[2016-12-24 12:00] VITALS: BP 120/69; PULSE 89; RESP 17; TEMP 97.2; O2SAT 95
[2016-12-24 16:00] VITALS: BP 149/73; PULSE 82; RESP 17; TEMP 97.6; O2SAT 94
[2016-12-24 20:00] VITALS: BP 130/69; PULSE 89; RESP 21; TEMP 98.3; O2SAT 96
[2016-12-25] VITALS: BP 122/65; PULSE 75; RESP 20; TEMP 98; O2SAT 93
[2016-12-25] MEDS: HYDROmorphone HCL PF 2 MG/ML VIAL IV PRN ×2 (03:29→15:34)
[2016-12-25] MEDS: oxyCODONE/ACETAMINOPHEN 5 MG/325 MG TAB PO PRN ×2 (04:44→10:43)
[2016-12-25 06:41] VITALS: RESP 18
[2016-12-25 08:00] VITALS: BP 119/72; PULSE 83; RESP 16; TEMP 97.7; O2SAT 94
[2016-12-25] MEDS: SODIUM CHLORIDE 0.9% FLUSH 10 ML FLUSH IV FLUSH SCH (09:00)
--- NOTE | 2016-12-25 09:48 | HHI.PR ---
Subjective Patient symptoms today Pt seen and examined. Feeling much better today. Pain is improved. Objective Vital Signs Vital Signs Date Time Temp Pulse Resp B/P (MAP) Pulse Ox O2 Delivery O2 Flow Rate FiO2 12/25/16 06:41 18 12/25/16 00:00 98.0 75 20 122/65 (84) 93 12/24/16 20:00 98.3 89 21 130/69 (89) 96 12/24/16 20:00 96 Room Air 12/24/16 16:00 97.6 82 17 149/73 (98) 94 12/24/16 14:00 18 12/24/16 12:00 97.2 89 17 120/69 (86) 95 12/24/16 10:00 18 Intake & Output 12/25/16 12/25/16 07:00 19:00 Intake Total 540 ml Output Total 150 ml Balance 390 ml Intake Oral 540 ml Output Urine Total 150 ml # Voids 1 Result Diagram: 12/23/16 1258 12/23/16 1258 Objective Remarks Lungs clear Heart regular rate and rhythm Abdomen soft, nondistended, mild tenderness to palpation PAULINE drain in place with minimal output Latham draining clear yellow urine Extremities well-perfused, nontender 12/24 Abd:soft,nd, incisional tenderness Dressing intact Ext: neg C/C/E 12/25 Abd:soft,nd, incisional tenderness Wound: clean and dry Ext: neg C/C/E Medications and IVs Current Medications Medications (Trade) Dose Ordered Sig/Alexandrea Route Start Time Stop Time Status Last Admin Lactated Ringer's 1,000 ml @ 30 mls/hr Q24H PRN IV 12/22/16 12:15 12/25/16 12:14 12/22/16 11:30 Sodium Chloride 500 ml @ 30 mls/hr [id number] PRN IV 12/22/16 12:15 12/25/16 12:14 (Lopressor) 25 mg YEAST SUPERVISOR PRN PO 12/22/16 12:15 12/25/16 12:14 (Betadine 5% Antisepsis Kit) 1 applic YEAST SUPERVISOR PRN EACH NARE 12/22/16 12:15 12/25/16 12:14 12/22/16 12:00 (Chlorhexidine 2% Cloth) 3 pack YEAST SUPERVISOR PRN TOPICAL 12/22/16 12:15 12/25/16 12:14 12/22/16 11:30 (NovoLIN R INJ) See Protocol Table ... YEAST SUPERVISOR PRN SQ 12/22/16 12:15 12/25/16 12:14 Cefazolin Sodium/ Dextrose 50 ml @ 100 mls/hr YEAST SUPERVISOR IV 12/22/16 12:15 12/25/16 12:14 12/22/16 13:40 Lactated Ringer's 1,000 ml @ 125 mls/hr Q8H IV 12/22/16 19:32 12/23/16 05:20 (NS Flush) 2 ml UNSCH PRN IV FLUSH 12/22/16 19:45 (NS Flush) 2 ml BID IV FLUSH 12/22/16 21:00 12/24/16 20:47 (Zofran Inj) 4 mg Q6H PRN IV PUSH 12/22/16 19:45 12/24/16 13:24 (Percocet 5-325 Mg) 1 tab Q6H PRN PO 12/23/16 10:15 12/23/16 10:48 (Percocet 5-325 Mg) 2 tab Q6H PRN PO 12/23/16 10:15 12/25/16 04:44 (Colace) 100 mg TID PO 12/23/16 13:00 12/24/16 20:48 (Dilaudid Pf Inj) 2 mg Q4H PRN IV 12/23/16 17:00 12/25/16 03:29 Assessment and Plan Assessment and Plan Urologic impression: #1 status post robot-assisted laparoscopic left radical nephrectomy converted to open procedure #2 hemodynamically stable Plan: #1 advance diet as tolerated #2 out of bed #3 DC Latham #4 DC PAULINE drain #5 DC arterial line #6 DC V BELT BUILDER #7 transfer to surgical floor #8 check repeat labs #9 check path when available #10 DC surgical dave on January 0412/24 Stable s/p left radical Nx Continue OOB/Ambulation Pain control Drains out. 12/25 Stable s/p left radical Nx Possible D/C home later today Malcolm Vázquez DO Dec 25, 2016 09:48
[2016-12-25] MEDS ORDERED: DOCUSATE SODIUM 100 MG CAP PO ONE (10:15)
[2016-12-25] MEDS: DOCUSATE SODIUM 100 MG CAP PO SCH (13:08)
== END 2016-12-25 15:51 | disposition home or self-care (01) | DRG 658 ==
LOC: HSDI 11:26 → N03A 21:46 → N07B 12-23 15:06
PROVIDERS: ADMIT Urology; ATTEND Urology
PROC: 0TT10ZZ Resection of Left Kidney, Open Approach (ICD-10-PCS; principal; 2016-12-22 13:38)
PROC: 8E0W4CZ Robotic Assisted Procedure of Trunk Region, Percutaneous Endoscopic Approach (ICD-10-PCS; 2016-12-22 13:38)
DX: C64.2 Malignant neoplasm of left kidney, except renal pelvis (principal); Z53.31 Laparoscopic surgical procedure converted to open procedure
CPT/HCPCS: 36430; 80048; 82805; 85014; 85018; 85027; 86850; 86900; 86901; 86920; 88307; 93005; 94150; J0131; J0690; J1170; J2250; J2370; J2405; J3010; J7040; J7120; P9016

== ENCOUNTER 2016-12-28 11:03 | Emergency (ER) | payer BC ==
[~2016-12-28] VITALS: Ht 185.4 cm; Wt 94.1 kg
[2016-12-28 11:04] VITALS: BP 141/80; PULSE 83; RESP 18; TEMP 98.8; O2SAT 99
[2016-12-28 11:14] VITALS: BP 128/69; PULSE 76; RESP 16; O2SAT 98
[2016-12-28 11:29] VITALS: BP 128/69; PULSE 78; RESP 16; O2SAT 98
[2016-12-28] MEDS ORDERED: SODIUM CHLORIDE 0.9% FLUSH 10 ML FLUSH IVF PRN (11:30)
--- NOTE | 2016-12-28 11:32 | PD ---
HPI Chief Complaint: Respiratory Symptoms Time Seen by Provider: 11:13 Travel History International Travel<30 days: No Contact w/Intl Traveler<30days: No Traveled to known affect area: No History of Present Illness HPI 41 YO M with PMH of left nephrectomy on 12/[address] Santiago presents to the ED for evaluation of SOB, SOTO. Gradual onset. HE states that he feels as if he cannot catch his breath. The patient denies fever, cough, CP, palpitations, lower extremity edema, leg pain. He endorses good appetite, well formed bowel movements, good urine output. He denies dysuria or hematuria. He states that he stopped taking narcotic pain medications 5 days ago. He states that he called Dr. Santiago's office today and was instructed to come to the ED. PFSH Past Medical History Arthritis: Yes (left knee arthritis ) Cancer: Yes (L nephrectomy 2016) Cardiovascular Problems: No Chemotherapy: No Diabetes: No Diminished Hearing: No Endocrine: No Genitourinary: No Hepatitis: No Hiatal Hernia: No Immune Disorder: No Musculoskeletal: Yes (l knee arthritis) Neurologic: No Psychiatric: No Reproductive: No Respiratory: No Radiation Therapy: No Thyroid Disease: No Past Surgical History Abdominal Surgery: Yes (Hernia repair ) AICD: No Cardiac Surgery: No Ear Surgery: No Endocrine Surgery: No Eye Surgery: No Genitourinary Surgery: Yes (Left nephrectomy december 2016) Gynecologic Surgery: No Joint Replacement: No Oral Surgery: No Pacemaker: No Thoracic Surgery: No Social History Alcohol Use: Yes (OCC) Tobacco Use: No Substance Use: No Allergies-Medications (Allergen,Severity, Reaction): Coded Allergies: No Known Allergies (Verified Allergy, Unknown, 12/28/16) Reported Meds & Prescriptions Reported Meds & Active Scripts Active No Active Prescriptions or Reported Medications Review of Systems Except as stated in HPI: all other systems reviewed are Neg Physical Exam Narrative GENERAL: Well-nourished, well-developed male in no acute distress. SKIN: Focused skin assessment warm/dry. Well healing surgical wound in the midline as well as 3 additional smaller wounds without signs of infection. HEAD: Normocephalic. EYES: No scleral icterus. No injection or drainage. NECK: Supple, trachea midline. No JVD or lymphadenopathy. CARDIOVASCULAR: Regular rate and rhythm without murmurs, gallops, or rubs. RESPIRATORY: Breath sounds clear and equal bilaterally. No accessory muscle use. GASTROINTESTINAL: Abdomen soft, non-tender, nondistended. Active bowel sounds. MUSCULOSKELETAL: No cyanosis, or edema. Homans sign negative bilaterally. BACK: Nontender without obvious deformity. No CVA tenderness. Data Data Last Documented VS Vital Signs Date Time Temp Pulse Resp B/P (MAP) Pulse Ox O2 Delivery O2 Flow Rate FiO2 12/28/16 15:06 16 99 12/28/16 11:29 78 Room Air 12/28/16 11:04 98.8 Orders Orders Complete Blood Count With Diff (12/28/16 11:25) Comprehensive Metabolic Panel (12/28/16 11:25) B-Type Natriuretic Peptide (12/28/16 11:25) Ckmb (Isoenzyme) Profile (12/28/16 11:25) Urinalysis - C+S If Indicated (12/28/16 11:25) Iv Access Insert/Monitor (12/28/16 11:25) Electrocardiogram (12/28/16 11:25) Ecg Monitoring (12/28/16 11:25) Oximetry (12/28/16 11:25) Chest, Single Ap (12/28/16 11:25) Sodium Chloride 0.9% Flush (Ns Flush) (12/28/16 11:30) CKMB (12/28/16 11:25) CKMB% (12/28/16 11:25) Ventilation & Perfusion Scan (12/28/16 ) Sodium Chlor 0.9% 1000 Ml Inj (Ns 1000 M (12/28/16 13:15) Ed Discharge Order (12/28/16 14:26) Labs Laboratory Tests Test 12/28/16 11:25 12/28/16 12:00 White Blood Count 5.6 TH/MM3 Red Blood Count 4.34 MIL/MM3 Hemoglobin 11.5 GM/DL Hematocrit 34.8 % Mean Corpuscular Volume 80.4 FL Mean Corpuscular Hemoglobin 26.5 PG Mean Corpuscular Hemoglobin Concent 33.0 % Red Cell Distribution Width 15.8 % Platelet Count 271 TH/MM3 Mean Platelet Volume 7.9 FL Neutrophils (%) (Auto) 63.7 % Lymphocytes (%) (Auto) 22.5 % Monocytes (%) (Auto) 10.1 % Eosinophils (%) (Auto) 3.4 % Basophils (%) (Auto) 0.3 % Neutrophils # (Auto) 3.6 TH/MM3 Lymphocytes # (Auto) 1.3 TH/MM3 Monocytes # (Auto) 0.6 TH/MM3 Eosinophils # (Auto) 0.2 TH/MM3 Basophils # (Auto) 0.0 TH/MM3 CBC Comment DIFF FINAL Differential Comment Blood Urea Nitrogen 19 MG/DL Creatinine 1.62 MG/DL Random Glucose 121 MG/DL Total Protein 7.9 GM/DL Albumin 3.9 GM/DL Calcium Level 8.9 MG/DL Alkaline Phosphatase 53 U/L Aspartate Amino Transf (AST/SGOT) 22 U/L Alanine Aminotransferase (ALT/SGPT) 26 U/L Total Bilirubin 0.2 MG/DL Sodium Level 138 MEQ/L Potassium Level 4.4 MEQ/L Chloride Level 103 MEQ/L Carbon Dioxide Level 27.8 MEQ/L Anion Gap 7 MEQ/L Total Creatine Kinase 126 U/L Creatine Kinase MB LESS THAN 0.5 NG/ML B-Type Natriuretic Peptide 2 PG/ML Urine Color YELLOW Urine Turbidity CLEAR Urine pH 6.5 Urine Specific Malone 1.029 Urine Protein 30 mg/dL Urine Glucose (UA) NEG mg/dL Urine Ketones NEG mg/dL Urine Occult Blood NEG Urine Nitrite NEG Urine Bilirubin NEG Urine Urobilinogen LESS THAN 2.0 MG/DL Urine Leukocyte Esterase NEG Urine RBC LESS THAN 1 /hpf Urine WBC 1 /hpf Urine Mucus FEW /lpf Microscopic Urinalysis Comment CULT NOT INDICATED MDM Medical Decision Making Medical Screen Exam Complete: Yes Emergency Medical Condition: Yes Differential Diagnosis PNA versus PE versus anemia versus UTI versus other Narrative Course 41-year-old male presents to the ED for evaluation of shortness of breath 6 days status post left nephrectomy by Dr. Santiago. Per the operative note this was attempted with DaVinci robotic assistance and converted to open. The patient required administration of blood products 2/2 intraoperative blood loss. He denies fever, cough, chest pain, palpitations, dysuria, hematuria, lower extremity edema or leg pain. Endorses good appetite, well formed bowel movements and good urine output. Vitals reviewed. Physical exam reveals a nontoxic-appearing male in no acute distress. No appreciable M/R/G. Breath sounds clear and equal bilaterally. Abdomen soft and nontender. Wound is well healing without signs of infection. No lower extremity edema. Homans sign negative bilaterally. EKG rate 74, sinus rhythm. Normal intervals. Normal axis. No ST changes. Reviewed by Dr. Kaufman. CXR: No acute cardiopulmonary disease per radiology read. V/Q SCAN: No mismatch identified. Low probability of PE or radiology read CBC: WBC 5.6. Hemoglobin 11.5. CMP:BUN 19, CR 1.62 BNP: 2 UA: No culture indicated. The patient was administered 1 L normal saline IV. I discussed the results of the workup with the patient. He states that he just returned to work and he suspects that he may have "overdid it" for his first day. He is instructed to return to normal, gentle activities as tolerated, continue to abstain from heavy lifting or heavy physical exertion, return to the ED for worsening symptoms, otherwise follow-up with Dr. Santiago as planned. He indicated understanding of the instructions and is agreeable care plan. He is stable and discharged home. Diagnosis Primary Impression: Shortness of breath Additional Impression: Dehydration Referrals: Travis Santiago MD Patient Instructions: Dehydration (ED), General Instructions, Shortness of Breath (ED) Additional Instructions: Rest, hydrate. Resume normal, gentle activities as tolerated. Resume at home medications as previously prescribed. Follow-up with Dr. Santiago. Return to the ED for worsening symptoms or any urgent or emergent medical condition. Scripts No Active Prescriptions or Reported Meds Disposition: 01 DISCHARGE HOME Condition: Stable Verenice Mcghee Dec 28, 2016 11:32
[2016-12-28 11:47] LABS: AUTOMATED NEUTROPHIL # 3.6 TH/MM3 (1.8-7.7); BASOPHIL % 0.3 % (0.0-2.0); EOSINOPHIL # 0.2 TH/MM3 (0-0.4); EOSINOPHIL % 3.4 % (0.0-4.0); HEMATOCRIT 34.8 % (39.0-51.0); HEMO FLAGS DIFF FINAL; LYMPH % 22.5 % (9.0-44.0); LYMPHOCYTE # 1.3 TH/MM3 (1.0-4.8); MEAN CELL VOLUME 80.4 FL (80.0-100.0); MEAN CORPUSCULAR HEMOGLOBIN 26.5 PG (27.0-34.0); MONO % 10.1 % (0.0-8.0); NEUT % 63.7 % (16.0-70.0); PLATELET COUNT 271 TH/MM3 (150-450); RED BLOOD COUNT 4.34 MIL/MM3 (4.50-5.90); RED CELL DISTRIBUTION WIDTH 15.8 % (11.6-17.2); WHITE BLOOD COUNT 5.6 TH/MM3 (4.0-11.0)
[2016-12-28 12:07] LABS: ALKALINE PHOSPHATASE 53 U/L (45-117); CREATINE KINASE 126 U/L (39-308); TOTAL BILIRUBIN ADULT 0.2 MG/DL (0.2-1.0)
[2016-12-28 12:13] LABS: ALT (GPT) 26 U/L (12-78); ANION GAP 7 MEQ/L (5-15); AST (GOT) 22 U/L (15-37); BICARBONATE 27.8 MEQ/L (21.0-32.0); BLOOD UREA NITROGEN 19 MG/DL (7-18); CHLORIDE 103 MEQ/L (98-107); POTASSIUM 4.4 MEQ/L (3.5-5.1); SODIUM (NA) 138 MEQ/L (136-145)
--- NOTE | 2016-12-28 12:14 | RADRPT ---
EXAM DATE/TIME: 12/28/2016 11:49 [facility] COMPARISON: No previous studies available for comparison. INDICATIONS : Shortness of breath with congestion. MEDICAL HISTORY : None. SURGICAL HISTORY : None. ENCOUNTER: Initial ACUITY: 1 day PAIN SCORE: Non-responsive. LOCATION: Bilateral chest FINDINGS: A single view of the chest demonstrates the lungs to be symmetrically aerated without evidence of mas s, infiltrate or effusion. The cardiomediastinal contours are unremarkable. Mild degenerative change s are noted involving the thoracic spine. CONCLUSION: No acute cardiopulmonary disease. Jimbo Browning MD on December 28, 2016 at 12:11 Board Certified Radiologist. This report was verified electronically.
[2016-12-28 12:23] LABS: CKMB LESS THAN 0.5 NG/ML (0.5-3.6)
[2016-12-28 12:31] LABS: BLOOD, URINE NEG (NEG); COMMENT (UR) CULT NOT INDICATED; CULTURE IF INDICATED CULT NOT INDICATED; GLUCOSE,URINE NEG (NEG); KETONE, URINE NEG (NEG); MUCUS URINE FEW /lpf (OCC); NITRITE,URINE NEG (NEG); PH, URINE 6.5 (5.0-8.5); URINE COLOR YELLOW (YELLW/STRAW)
[2016-12-28] MEDS ORDERED: SODIUM CHLOR 0.9% 1000 ML INJ 1,000 ML IV ONE (13:15)
--- NOTE | 2016-12-28 14:07 | RADRPT ---
EXAM DATE/TIME: 12/28/2016 13:40 [facility] COMPARISON: CHEST SINGLE AP, December 28, 2016, 11:49. INDICATIONS : Dyspnea. DOSE: 8.5 mCi Tc99m MAA IV 2.1 mCi Tc99m DTPA aerosol MEDICAL HISTORY : Renal failure, chronic SURGICAL HISTORY : Nephrectomy, left. ENCOUNTER: Initial ACUITY: 1 day PAIN SCALE: 0/10 LOCATION: chest TECHNIQUE: Following five minutes of tidal breathing of DTPA aerosol, planar images of the lungs were performed in eight projections. The patient was then injected with MAA, and eight-view perfusion scan was perf ormed. FINDINGS: There is a homogeneous pattern of aerosol delivery to the periphery of both lungs. No focal ventilat ory defects are seen. The perfusion lung scan demonstrates a homogenous pattern of uptake in both lungs. No segmental or s ubsegmental defects are seen. CONCLUSION: No ventilation/perfusion mismatch is identified. Examination is low probability for PE. Bo Almanza MD on December 28, 2016 at 14:05 Board Certified Radiologist. This report was verified electronically.
--- NOTE | 2016-12-28 16:05 | EKG ---
Date Performed: 12/28/2016 Time Performed: 11:34:44 PTAGE: 41 years EKG: Sinus rhythm Compared to prior tracing no significant change NORMAL ECG PREVIOUS TRACING : 12/22/2016 12.03 DOCTOR: Jarek Dunaway Interpretating Date/Time 12/28/2016 16:04:58
== END 2016-12-28 15:08 | disposition home or self-care (01) ==
LOC: NEPC 11:03
DX: R06.02 Shortness of breath (principal); E86.0 Dehydration; Z98.890 Other specified postprocedural states; Z90.5 Acquired absence of kidney; Z87.39 Personal history of other diseases of the musculoskeletal system and connective tissue
CPT/HCPCS: 71010; 78582; 80053; 81001; 82550; 82552; 83880; 85025; 93005; 96360; 99285; A9540; A9567; J7030

== ENCOUNTER 2016-12-28 20:27 | Emergency (ER) | payer BC ==
[2016-12-28 20:33] VITALS: BP 134/72; PULSE 92; RESP 16; TEMP 98.6; O2SAT 96
--- NOTE | 2016-12-28 20:52 | PD ---
HPI Chief Complaint: Pain: Acute or Chronic Time Seen by Provider: 20:45 Travel History International Travel<30 days: No Contact w/Intl Traveler<30days: No Traveled to known affect area: No History of Present Illness HPI 41-year-old male arrives to the ER complaining of calf pain primarily on the right side. He underwent a left radical nephrectomy 6 days prior. He reports since then he has had some intermittent shortness of breath. He was seen and evaluated here earlier today and underwent a VQ scan which was unremarkable. He returns with a concern for DVT. He denies chest pain. No generalized sensation of weakness is reported as an associated symptom. No cough or chest pain. Severity [id number]. PFSH Past Medical History Arthritis: Yes (left knee arthritis ) Cancer: Yes (L nephrectomy 2016) Cardiovascular Problems: No Chemotherapy: No Diabetes: No Diminished Hearing: No Endocrine: No Genitourinary: No Hepatitis: No Hiatal Hernia: No Immune Disorder: No Musculoskeletal: Yes (l knee arthritis) Neurologic: No Psychiatric: No Reproductive: No Respiratory: No Radiation Therapy: No Thyroid Disease: No Past Surgical History Abdominal Surgery: Yes (Hernia repair ) AICD: No Cardiac Surgery: No Ear Surgery: No Endocrine Surgery: No Eye Surgery: No Genitourinary Surgery: Yes (Left nephrectomy december 2016) Gynecologic Surgery: No Joint Replacement: No Oral Surgery: No Pacemaker: No Thoracic Surgery: No Other Surgery: Yes Social History Alcohol Use: No Tobacco Use: No Substance Use: No Allergies-Medications (Allergen,Severity, Reaction): Coded Allergies: No Known Allergies (Verified Allergy, Unknown, 12/28/16) Reported Meds & Prescriptions Reported Meds & Active Scripts Active No Active Prescriptions or Reported Medications Review of Systems Except as stated in HPI: all other systems reviewed are Neg General / Constitutional: No: Fever Cardiovascular: No: Chest Pain or Discomfort Respiratory: Positive: Shortness of Breath Physical Exam Narrative GENERAL: 41-year-old male well-nourished well-developed no acute distress SKIN: Focused skin assessment warm/dry. HEAD: Atraumatic. Normocephalic. EYES: Pupils equal and round. No scleral icterus. No injection or drainage. ENT: No nasal bleeding or discharge. Mucous membranes pink and moist. NECK: Trachea midline. No JVD. CARDIOVASCULAR: Regular rate and rhythm. No murmur appreciated. RESPIRATORY: No accessory muscle use. Clear to auscultation. Breath sounds equal bilaterally. GASTROINTESTINAL: Abdomen soft, non-tender, nondistended. Hepatic and splenic margins not palpable. MUSCULOSKELETAL: No obvious deformities. No clubbing. No cyanosis. No asymmetry warmth or tenderness. NEUROLOGICAL: Awake and alert. No obvious cranial nerve deficits. Motor grossly within normal limits. Normal speech. PSYCHIATRIC: Appropriate mood and affect; insight and judgment normal. Data Data Last Documented VS Vital Signs Date Time Temp Pulse Resp B/P (MAP) Pulse Ox O2 Delivery O2 Flow Rate FiO2 12/28/16 20:33 98.6 92 16 134/72 (92) 96 Vital signs reviewed Orders Orders Us Leg Venous Doppler Bilat (12/28/16 ) Ed Discharge Order (12/28/16 21:58) [facility] Medical Decision Making Medical Screen Exam Complete: Yes Emergency Medical Condition: Yes Medical Record Reviewed: Yes Differential Diagnosis DVT, anemia, muscle spasms Narrative Course CBC from earlier today revealed a hemoglobin of 11.5 VQ scan from earlier today was low probability PE Lower extremity Doppler ultrasound ordered and if negative patient will be discharged. LE Doppler study negative. Pt ok for discharge. Diagnosis Primary Impression: Calf cramp Additional Impression: Weakness generalized Med/Other Pt SpecificInfo: No Change to Meds Scripts No Active Prescriptions or Reported Meds Disposition: 01 DISCHARGE HOME Condition: Stable Jorge Alberto Block MD Dec 28, 2016 20:52
--- NOTE | 2016-12-28 21:53 | RADRPT ---
EXAM DATE/TIME: 12/28/2016 21:09 [facility] COMPARISON: No previous studies available for comparison. INDICATIONS : Right leg pain. MEDICAL HISTORY : Carcinoma, renal. Left knee arthritis. SURGICAL HISTORY : Left nephrectomy. Hernia repair. ENCOUNTER: Initial ACUITY: 1 day PAIN SCORE: 4/10 LOCATION: Bilateral legs. TECHNIQUE: Venous ultrasound of the left and right leg was performed from the inguinal ligament to the proximal calf. Real-time, color Doppler and spectral tracing, compression and augmentation techniques were us ed. FINDINGS: RIGHT LEG: There is normal compressibility of the deep venous system from the inguinal region to the proximal ca lf. No echogenic clot is seen in the lumen of the common femoral, femoral, popliteal, and posterior tibial veins. There is a normal response of the venous system to proximal and distal augmentation an d respiration. LEFT LEG: There is normal compressibility of the deep venous system from the inguinal region to the proximal ca lf. No echogenic clot is seen in the lumen of the common femoral, femoral, popliteal, and posterior tibial veins. There is a normal response of the venous system to proximal and distal augmentation an d respiration. CONCLUSION: The study is negative for deep venous thrombosis bilateral lower extremity. Gurpreet Us MD on December 28, 2016 at 21:51 Board Certified Radiologist. This report was verified electronically.
== END 2016-12-28 22:13 | disposition home or self-care (01) ==
LOC: NEPE 20:27
DX: R25.2 Cramp and spasm (principal); R53.1 Weakness; R06.02 Shortness of breath; Z98.890 Other specified postprocedural states; Z90.5 Acquired absence of kidney; Z87.39 Personal history of other diseases of the musculoskeletal system and connective tissue
CPT/HCPCS: 93970; 99284